=== PATIENT | female | born 1985 | race Hispanic/Latino ===

== ENCOUNTER 2019-09-16 17:26 | Emergency (ER) | payer SELFPAY ==
[~2019-09-16] VITALS: Ht 154.9 cm; Wt 68.0 kg
--- OUTSIDE RECORDS SUMMARY | 2019-09-16 17:29 | XMS REPORT ---
[facility] Address Unknown Phone Unavailable Care Team Providers Care Pv Design And Installation Technician Name Role Phone Unavailable Unavailable Payers Payer Name Policy Type Policy Number Effective Date Expiration Date Problems This patient has no known problems. Allergies, Adverse Reactions, Alerts Allergy Name Allergy Type Status Severity Reaction(s) Onset Date Inactive Date Treating Clinician Comments No Known Allergies DA Active U 2019-05-13 00:00:00 No Known Allergies DA Active U 2019-05-12 00:00:00 No Known Allergies DA Active U 2019-04-16 00:00:00 No Known Allergies DA Active U 2019-02-24 00:00:00 No Known Allergies DA Active U 2013-10-26 00:00:00 Medications This patient has no known medications. Encounters Start Date/Time End Date/Time Encounter Type Admission Type Attending Clinicians Care Facility Care Department Encounter ID 2019-07-10 07:22:00 2019-07-10 07:22:00 Emergency E [facility] [id number] 2019-07-08 15:00:00 2019-07-08 15:00:00 Emergency E [facility] 7502 2019-02-04 16:51:00 2019-02-04 16:51:00 Emergency E [facility] [id number] Results Test Description Test Time Test Comments Text Results Atomic Results Result Comments CBC W/MANUAL DIFF 2019-05-15 09:45:00 WHITE BLOOD CELL (test code=WBC) 7.1 K/mm3 4.5-12.5 RED BLOOD CELL (test code=RBC) 3.81 mill/mm3 3.7-5.2 HEMOGLOBIN (test code=HGB) 7.0 gram/dL 11.5-15.5 HEMATOCRIT (test code=HCT) 25.1 % 36.0-46.0 MEAN CELL VOLUME (test code=MCV) 65.9 fL 80-98 MEAN CELL HGB (test code=MCH) 18.4 picogram 27.0-33.0 MEAN CELL HGB CONCETRATION (test code=MCHC) 27.9 gram/dL 33.0-36.0 RED CELL DISTRIBUTION WIDTH (test code=RDW) 18.6 % 11.6-16.2 RED CELL DISTRIBUTION WIDTH SD (test code=RDW-SD) 43.7 fL 37.0-51.0 PLATELET COUNT (test code=PLT) 383 K/mm3 150-450 MEAN PLATELET VOLUME (test code=MPV) 10.5 fL 6.7-11.0 IMMATURE GRANULOCYTE % (test code=IG%) 0.6 % 0.0-5.0 NUCLEATED RBC % (test code=NRBC%) 0.0 % 0-0 NEUTROPHIL # (test code=NT#) 3.60 K/mm3 1.8-7.7 IMMATURE GRANULOCYTE # (test code=IG#) 0.04 x10 3/uL 0-0.03 LYMPHOCYTE # (test code=LY#) 2.44 K/mm3 1.0-5.0 MONOCYTE # (test code=MO#) 0.58 K/mm3 0-0.8 EOSINOPHIL # (test code=EO#) 0.32 K/mm3 0.0-0.5 BASOPHIL # (test code=BA#) 0.07 K/mm3 0.0-0.2 NUCLEATED RBC # (test code=NRBC#) 0.00 K/mm3 0.0-0.1 MANUAL DIFF REQUIRED (test code=MDIFF) YES STAIN ACCEPTABILITY (test code=STN ACCEPTABLE) STAIN ACCEPTABLE TOTAL CELLS COUNTED (test code=TCC) 113 #CELLS SEGMENTED NEUTROPHILS (test code=SEG) 58.8 % 39-69 BAND NEUTROPHIL (test code=BAND) 0 % 0-10 LYMPHOCYTE (test code=LYMPH) 25.8 % 25-55 REACTIVE LYMPH (test code=RELYMPH) 4.4 % MONOCYTE (test code=MON) 5.7 % 0-10 EOSINOPHIL (test code=EOS) 3.5 % 0.0-5.0 BASOPHIL (test code=BASO) 1.8 % 0-1.0 METAMYELOCYTE (test code=META) 0 % 0-0 MYELOCYTE (test code=MYELO) 0 % 0.0-0.0 PROMYELOCYTE (test code=PROM) 0 % 0-0 POLYCHROMASIA (test code=POLC) 1+ HYPOCHROMIA (test code=HYPO) 1+ POIKILOCYTOSIS (test code=POIK) 1+ ANISOCYTOSIS (test code=ANISO) 1+ MICROCYTOSIS (test code=MICR) 1+ ELLIPTOCYTES (test code=ELL) 1+ PLATELET ESTIMATE (test code=PLTEST) ADEQUATE PLATELET MORPHOLOGY (test code=PLTMORPH) NORMAL IMMATURE FORMS (test code=IMMAT) 0 % 0-0 CBC W/MANUAL [id number] 09:15:00* Test Item Value Reference Range Comments WHITE BLOOD CELL (test code=WBC) 7.1 K/mm3 4.5-12.5 RED BLOOD CELL (test code=RBC) 3.81 mill/mm3 3.7-5.2 HEMOGLOBIN (test code=HGB) 7.0 gram/dL 11.5-15.5 HEMATOCRIT (test code=HCT) 25.1 % 36.0-46.0 MEAN CELL VOLUME (test code=MCV) 65.9 fL 80-98 MEAN CELL HGB (test code=MCH) 18.4 picogram 27.0-33.0 MEAN CELL HGB CONCETRATION (test code=MCHC) 27.9 gram/dL 33.0-36.0 RED CELL DISTRIBUTION WIDTH (test code=RDW) 18.6 % 11.6-16.2 RED CELL DISTRIBUTION WIDTH SD (test code=RDW-SD) 43.7 fL 37.0-51.0 PLATELET COUNT (test code=PLT) 383 K/mm3 150-450 MEAN PLATELET VOLUME (test code=MPV) 10.5 fL 6.7-11.0 IMMATURE GRANULOCYTE % (test code=IG%) 0.6 % 0.0-5.0 NUCLEATED RBC % (test code=NRBC%) 0.0 % 0-0 NEUTROPHIL # (test code=NT#) 3.60 K/mm3 1.8-7.7 IMMATURE GRANULOCYTE # (test code=IG#) 0.04 x10 3/uL 0-0.03 LYMPHOCYTE # (test code=LY#) 2.44 K/mm3 1.0-5.0 MONOCYTE # (test code=MO#) 0.58 K/mm3 0-0.8 EOSINOPHIL # (test code=EO#) 0.32 K/mm3 0.0-0.5 BASOPHIL # (test code=BA#) 0.07 K/mm3 0.0-0.2 NUCLEATED RBC # (test code=NRBC#) 0.00 K/mm3 0.0-0.1 MANUAL DIFF REQUIRED (test code=MDIFF) YES STAIN ACCEPTABILITY (test code=STN ACCEPTABLE) TOTAL CELLS COUNTED (test code=TCC) #CELLS SEGMENTED NEUTROPHILS (test code=SEG) % 39-69 LYMPHOCYTE (test code=LYMPH) % 25-55 MONOCYTE (test code=MON) % 0-10 EOSINOPHIL (test code=EOS) % 0.0-5.0 CABOT RINGS (test code=CAB) MORPHOLOGY COMMENT (test code=MOC) PLATELET ESTIMATE (test code=PLTEST) PLATELET MORPHOLOGY (test code=PLTMORPH) CBC W/MANUAL [id number] 09:15:00* Test Item Value Reference Range Comments WHITE BLOOD CELL (test code=WBC) 7.1 K/mm3 4.5-12.5 RED BLOOD CELL (test code=RBC) 3.81 mill/mm3 3.7-5.2 HEMOGLOBIN (test code=HGB) 7.0 gram/dL 11.5-15.5 HEMATOCRIT (test code=HCT) 25.1 % 36.0-46.0 MEAN CELL VOLUME (test code=MCV) 65.9 fL 80-98 MEAN CELL HGB (test code=MCH) 18.4 picogram 27.0-33.0 MEAN CELL HGB CONCETRATION (test code=MCHC) 27.9 gram/dL 33.0-36.0 RED CELL DISTRIBUTION WIDTH (test code=RDW) 18.6 % 11.6-16.2 RED CELL DISTRIBUTION WIDTH SD (test code=RDW-SD) 43.7 fL 37.0-51.0 PLATELET COUNT (test code=PLT) 383 K/mm3 150-450 MEAN PLATELET VOLUME (test code=MPV) 10.5 fL 6.7-11.0 IMMATURE GRANULOCYTE % (test code=IG%) 0.6 % 0.0-5.0 NUCLEATED RBC % (test code=NRBC%) 0.0 % 0-0 NEUTROPHIL # (test code=NT#) 3.60 K/mm3 1.8-7.7 IMMATURE GRANULOCYTE # (test code=IG#) 0.04 x10 3/uL 0-0.03 LYMPHOCYTE # (test code=LY#) 2.44 K/mm3 1.0-5.0 MONOCYTE # (test code=MO#) 0.58 K/mm3 0-0.8 EOSINOPHIL # (test code=EO#) 0.32 K/mm3 0.0-0.5 BASOPHIL # (test code=BA#) 0.07 K/mm3 0.0-0.2 NUCLEATED RBC # (test code=NRBC#) 0.00 K/mm3 0.0-0.1 MANUAL DIFF REQUIRED (test code=MDIFF) YES STAIN ACCEPTABILITY (test code=STN ACCEPTABLE) TOTAL CELLS COUNTED (test code=TCC) #CELLS SEGMENTED NEUTROPHILS (test code=SEG) % 39-69 LYMPHOCYTE (test code=LYMPH) % 25-55 MONOCYTE (test code=MON) % 0-10 EOSINOPHIL (test code=EOS) % 0.0-5.0 MORPHOLOGY COMMENT (test code=MOC) PLATELET ESTIMATE (test code=PLTEST) PLATELET MORPHOLOGY (test code=PLTMORPH) CBC W/MANUAL [id number] 09:15:00* Test Item Value Reference Range Comments WHITE BLOOD CELL (test code=WBC) 7.1 K/mm3 4.5-12.5 RED BLOOD CELL (test code=RBC) 3.81 mill/mm3 3.7-5.2 HEMOGLOBIN (test code=HGB) 7.0 gram/dL 11.5-15.5 HEMATOCRIT (test code=HCT) 25.1 % 36.0-46.0 MEAN CELL VOLUME (test code=MCV) 65.9 fL 80-98 MEAN CELL HGB (test code=MCH) 18.4 picogram 27.0-33.0 MEAN CELL HGB CONCETRATION (test code=MCHC) 27.9 gram/dL 33.0-36.0 RED CELL DISTRIBUTION WIDTH (test code=RDW) 18.6 % 11.6-16.2 RED CELL DISTRIBUTION WIDTH SD (test code=RDW-SD) 43.7 fL 37.0-51.0 PLATELET COUNT (test code=PLT) 383 K/mm3 150-450 MEAN PLATELET VOLUME (test code=MPV) 10.5 fL 6.7-11.0 IMMATURE GRANULOCYTE % (test code=IG%) 0.6 % 0.0-5.0 NUCLEATED RBC % (test code=NRBC%) 0.0 % 0-0 NEUTROPHIL # (test code=NT#) 3.60 K/mm3 1.8-7.7 IMMATURE GRANULOCYTE # (test code=IG#) 0.04 x10 3/uL 0-0.03 LYMPHOCYTE # (test code=LY#) 2.44 K/mm3 1.0-5.0 MONOCYTE # (test code=MO#) 0.58 K/mm3 0-0.8 EOSINOPHIL # (test code=EO#) 0.32 K/mm3 0.0-0.5 BASOPHIL # (test code=BA#) 0.07 K/mm3 0.0-0.2 NUCLEATED RBC # (test code=NRBC#) 0.00 K/mm3 0.0-0.1 MANUAL DIFF REQUIRED (test code=MDIFF) YES STAIN ACCEPTABILITY (test code=STN ACCEPTABLE) TOTAL CELLS COUNTED (test code=TCC) #CELLS SEGMENTED NEUTROPHILS (test code=SEG) % 39-69 LYMPHOCYTE (test code=LYMPH) % 25-55 MONOCYTE (test code=MON) % 0-10 MORPHOLOGY COMMENT (test code=MOC) PLATELET ESTIMATE (test code=PLTEST) PLATELET MORPHOLOGY (test code=PLTMORPH) CBC W/MANUAL [id number] 09:14:00* Test Item Value Reference Range Comments WHITE BLOOD CELL (test code=WBC) 7.1 K/mm3 4.5-12.5 RED BLOOD CELL (test code=RBC) 3.81 mill/mm3 3.7-5.2 HEMOGLOBIN (test code=HGB) 7.0 gram/dL 11.5-15.5 HEMATOCRIT (test code=HCT) 25.1 % 36.0-46.0 MEAN CELL VOLUME (test code=MCV) 65.9 fL 80-98 MEAN CELL HGB (test code=MCH) 18.4 picogram 27.0-33.0 MEAN CELL HGB CONCETRATION (test code=MCHC) 27.9 gram/dL 33.0-36.0 RED CELL DISTRIBUTION WIDTH (test code=RDW) 18.6 % 11.6-16.2 RED CELL DISTRIBUTION WIDTH SD (test code=RDW-SD) 43.7 fL 37.0-51.0 PLATELET COUNT (test code=PLT) 383 K/mm3 150-450 MEAN PLATELET VOLUME (test code=MPV) 10.5 fL 6.7-11.0 IMMATURE GRANULOCYTE % (test code=IG%) 0.6 % 0.0-5.0 NUCLEATED RBC % (test code=NRBC%) 0.0 % 0-0 NEUTROPHIL # (test code=NT#) 3.60 K/mm3 1.8-7.7 IMMATURE GRANULOCYTE # (test code=IG#) 0.04 x10 3/uL 0-0.03 LYMPHOCYTE # (test code=LY#) 2.44 K/mm3 1.0-5.0 MONOCYTE # (test code=MO#) 0.58 K/mm3 0-0.8 EOSINOPHIL # (test code=EO#) 0.32 K/mm3 0.0-0.5 BASOPHIL # (test code=BA#) 0.07 K/mm3 0.0-0.2 NUCLEATED RBC # (test code=NRBC#) 0.00 K/mm3 0.0-0.1 MANUAL DIFF REQUIRED (test code=MDIFF) YES STAIN ACCEPTABILITY (test code=STN ACCEPTABLE) TOTAL CELLS COUNTED (test code=TCC) #CELLS SEGMENTED NEUTROPHILS (test code=SEG) % 39-69 LYMPHOCYTE (test code=LYMPH) % 25-55 MONOCYTE (test code=MON) % 0-10 EOSINOPHIL (test code=EOS) % 0.0-5.0 CABOT RINGS (test code=CAB) MORPHOLOGY COMMENT (test code=MOC) PLATELET ESTIMATE (test code=PLTEST) PLATELET MORPHOLOGY (test code=PLTMORPH) CBC W/MANUAL [id number] 09:14:00* Test Item Value Reference Range Comments WHITE BLOOD CELL (test code=WBC) 7.1 K/mm3 4.5-12.5 RED BLOOD CELL (test code=RBC) 3.81 mill/mm3 3.7-5.2 HEMOGLOBIN (test code=HGB) 7.0 gram/dL 11.5-15.5 HEMATOCRIT (test code=HCT) 25.1 % 36.0-46.0 MEAN CELL VOLUME (test code=MCV) 65.9 fL 80-98 MEAN CELL HGB (test code=MCH) 18.4 picogram 27.0-33.0 MEAN CELL HGB CONCETRATION (test code=MCHC) 27.9 gram/dL 33.0-36.0 RED CELL DISTRIBUTION WIDTH (test code=RDW) 18.6 % 11.6-16.2 RED CELL DISTRIBUTION WIDTH SD (test code=RDW-SD) 43.7 fL 37.0-51.0 PLATELET COUNT (test code=PLT) 383 K/mm3 150-450 MEAN PLATELET VOLUME (test code=MPV) 10.5 fL 6.7-11.0 IMMATURE GRANULOCYTE % (test code=IG%) 0.6 % 0.0-5.0 NUCLEATED RBC % (test code=NRBC%) 0.0 % 0-0 NEUTROPHIL # (test code=NT#) 3.60 K/mm3 1.8-7.7 IMMATURE GRANULOCYTE # (test code=IG#) 0.04 x10 3/uL 0-0.03 LYMPHOCYTE # (test code=LY#) 2.44 K/mm3 1.0-5.0 MONOCYTE # (test code=MO#) 0.58 K/mm3 0-0.8 EOSINOPHIL # (test code=EO#) 0.32 K/mm3 0.0-0.5 BASOPHIL # (test code=BA#) 0.07 K/mm3 0.0-0.2 NUCLEATED RBC # (test code=NRBC#) 0.00 K/mm3 0.0-0.1 MANUAL DIFF REQUIRED (test code=MDIFF) YES STAIN ACCEPTABILITY (test code=STN ACCEPTABLE) TOTAL CELLS COUNTED (test code=TCC) #CELLS SEGMENTED NEUTROPHILS (test code=SEG) % 39-69 LYMPHOCYTE (test code=LYMPH) % 25-55 MONOCYTE (test code=MON) % 0-10 EOSINOPHIL (test code=EOS) % 0.0-5.0 CABOT RINGS (test code=CAB) MORPHOLOGY COMMENT (test code=MOC) PLATELET ESTIMATE (test code=PLTEST) PLATELET MORPHOLOGY (test code=PLTMORPH) BASIC METABOLIC [id number] 08:16:00* Test Item Value Reference Range Comments SODIUM (test code=NA) 143 mmol/L 136-145 POTASSIUM (test code=K) 3.6 mmol/L 3.5-5.1 CHLORIDE (test code=CL) 109.0 mmol/L 98-107 CARBON DIOXIDE (test code=CO2) 26.0 mmol/L 21-32 ANION GAP (test code=GAP) 11.6 10-20 GLUCOSE (test code=GLU) 100 mg/dL 74-106 BLOOD UREA NITROGEN (test code=BUN) 5 mg/dL 7-18 GLOMERULAR FILTRATION RATE (test code=GFR) > 60 mL/min >=60 Estimated GFR by using Modified MDRD formula.Chronic kidney disease is defined as either kidney damageor GFR <60 mL/min/1.73 m2 for >3 months. CREATININE (test code=CREAT) 0.50 mg/dL 0.55-1.02 Note change in reference range due to change in reagent. BUN/CREATININE RATIO (test code=BUN/CREA) 9.5 10-20 CALCIUM (test code=CA) 8.4 mg/dL 8.5-10.1 CBC W/AUTO [id number] 07:04:00* Test Item Value Reference Range Comments WHITE BLOOD CELL (test code=WBC) 10.5 K/mm3 4.5-12.5 RED BLOOD CELL (test code=RBC) 3.92 mill/mm3 3.7-5.2 HEMOGLOBIN (test code=HGB) 7.3 gram/dL 11.5-15.5 HEMATOCRIT (test code=HCT) 25.2 % 36.0-46.0 MEAN CELL VOLUME (test code=MCV) 64.3 fL 80-98 MEAN CELL HGB (test code=MCH) 18.6 picogram 27.0-33.0 MEAN CELL HGB CONCETRATION (test code=MCHC) 29.0 gram/dL 33.0-36.0 RED CELL DISTRIBUTION WIDTH (test code=RDW) 18.7 % 11.6-16.2 RED CELL DISTRIBUTION WIDTH SD (test code=RDW-SD) 42.3 fL 37.0-51.0 PLATELET COUNT (test code=PLT) 364 K/mm3 150-450 MEAN PLATELET VOLUME (test code=MPV) 10.5 fL 6.7-11.0 NEUTROPHIL % (test code=NT%) 68.1 % 39.0-69.0 IMMATURE GRANULOCYTE % (test code=IG%) 0.6 % 0.0-5.0 LYMPHOCYTE % (test code=LY%) 19.3 % 25.0-55.0 MONOCYTE % (test code=MO%) 9.4 % 0.0-10.0 EOSINOPHIL % (test code=EO%) 1.6 % 0.0-5.0 BASOPHIL % (test code=BA%) 1.0 % 0.0-1.0 NUCLEATED RBC % (test code=NRBC%) 0.0 % 0-0 NEUTROPHIL # (test code=NT#) 7.15 K/mm3 1.8-7.7 IMMATURE GRANULOCYTE # (test code=IG#) 0.06 x10 3/uL 0-0.03 LYMPHOCYTE # (test code=LY#) 2.03 K/mm3 1.0-5.0 MONOCYTE # (test code=MO#) 0.99 K/mm3 0-0.8 EOSINOPHIL # (test code=EO#) 0.17 K/mm3 0.0-0.5 BASOPHIL # (test code=BA#) 0.10 K/mm3 0.0-0.2 NUCLEATED RBC # (test code=NRBC#) 0.00 K/mm3 0.0-0.1 MANUAL DIFF REQUIRED (test code=MDIFF) NO, ONLY SCAN NEEDED DIFFERENTIAL [id number] 07:04:00* Test Item Value Reference Range Comments STAIN ACCEPTABILITY (test code=STN ACCEPTABLE) STAIN ACCEPTABLE POLYCHROMASIA (test code=POLC) 1+ HYPOCHROMIA (test code=HYPO) 2+ POIKILOCYTOSIS (test code=POIK) 1+ ANISOCYTOSIS (test code=ANISO) 2+ MICROCYTOSIS (test code=MICR) 2+ PLATELET ESTIMATE (test code=PLTEST) ADEQUATE PLATELET MORPHOLOGY (test code=PLTMORPH) NORMAL BASIC METABOLIC [id number] 06:44:00* Test Item Value Reference Range Comments SODIUM (test code=NA) 141 mmol/L 136-145 POTASSIUM (test code=K) 3.2 mmol/L 3.5-5.1 CHLORIDE (test code=CL) 108.0 mmol/L 98-107 CARBON DIOXIDE (test code=CO2) 24.0 mmol/L 21-32 ANION GAP (test code=GAP) 12.2 10-20 GLUCOSE (test code=GLU) 118 mg/dL 74-106 BLOOD UREA NITROGEN (test code=BUN) 6 mg/dL 7-18 GLOMERULAR FILTRATION RATE (test code=GFR) > 60 mL/min >=60 Estimated GFR by using Modified MDRD formula.Chronic kidney disease is defined as either kidney damageor GFR <60 mL/min/1.73 m2 for >3 months. CREATININE (test code=CREAT) 0.60 mg/dL 0.55-1.02 Note change in reference range due to change in reagent. BUN/CREATININE RATIO (test code=BUN/CREA) 9.8 10-20 CALCIUM (test code=CA) 8.3 mg/dL 8.5-10.1 BASIC METABOLIC [id number] 06:38:00* Test Item Value Reference Range Comments SODIUM (test code=NA) 141 mmol/L 136-145 POTASSIUM (test code=K) 3.2 mmol/L 3.5-5.1 CHLORIDE (test code=CL) 108.0 mmol/L 98-107 CARBON DIOXIDE (test code=CO2) mmol/L 21-32 ANION GAP (test code=GAP) 10-20 GLUCOSE (test code=GLU) mg/dL 74-106 BLOOD UREA NITROGEN (test code=BUN) mg/dL 7-18 GLOMERULAR FILTRATION RATE (test code=GFR) mL/min >=60 CREATININE (test code=CREAT) mg/dL 0.55-1.02 BUN/CREATININE RATIO (test code=BUN/CREA) 10-20 CALCIUM (test code=CA) mg/dL 8.5-10.1 CBC W/AUTO [id number] 06:22:00* Test Item Value Reference Range Comments WHITE BLOOD CELL (test code=WBC) 10.5 K/mm3 4.5-12.5 RED BLOOD CELL (test code=RBC) 3.92 mill/mm3 3.7-5.2 HEMOGLOBIN (test code=HGB) 7.3 gram/dL 11.5-15.5 HEMATOCRIT (test code=HCT) 25.2 % 36.0-46.0 MEAN CELL VOLUME (test code=MCV) 64.3 fL 80-98 MEAN CELL HGB (test code=MCH) 18.6 picogram 27.0-33.0 MEAN CELL HGB CONCETRATION (test code=MCHC) 29.0 gram/dL 33.0-36.0 RED CELL DISTRIBUTION WIDTH (test code=RDW) 18.7 % 11.6-16.2 RED CELL DISTRIBUTION WIDTH SD (test code=RDW-SD) 42.3 fL 37.0-51.0 PLATELET COUNT (test code=PLT) 364 K/mm3 150-450 MEAN PLATELET VOLUME (test code=MPV) 10.5 fL 6.7-11.0 NEUTROPHIL % (test code=NT%) 68.1 % 39.0-69.0 IMMATURE GRANULOCYTE % (test code=IG%) 0.6 % 0.0-5.0 LYMPHOCYTE % (test code=LY%) 19.3 % 25.0-55.0 MONOCYTE % (test code=MO%) 9.4 % 0.0-10.0 EOSINOPHIL % (test code=EO%) 1.6 % 0.0-5.0 BASOPHIL % (test code=BA%) 1.0 % 0.0-1.0 NUCLEATED RBC % (test code=NRBC%) 0.0 % 0-0 NEUTROPHIL # (test code=NT#) 7.15 K/mm3 1.8-7.7 IMMATURE GRANULOCYTE # (test code=IG#) 0.06 x10 3/uL 0-0.03 LYMPHOCYTE # (test code=LY#) 2.03 K/mm3 1.0-5.0 MONOCYTE # (test code=MO#) 0.99 K/mm3 0-0.8 EOSINOPHIL # (test code=EO#) 0.17 K/mm3 0.0-0.5 BASOPHIL # (test code=BA#) 0.10 K/mm3 0.0-0.2 NUCLEATED RBC # (test code=NRBC#) 0.00 K/mm3 0.0-0.1 MANUAL DIFF REQUIRED (test code=MDIFF) NO, ONLY SCAN NEEDED DIFFERENTIAL [id number] 06:22:00* Test Item Value Reference Range Comments STAIN ACCEPTABILITY (test code=STN ACCEPTABLE) CABOT RINGS (test code=CAB) MORPHOLOGY COMMENT (test code=MOC) PLATELET ESTIMATE (test code=PLTEST) PLATELET MORPHOLOGY (test code=PLTMORPH) CBC W/AUTO [id number] 06:22:00* Test Item Value Reference Range Comments WHITE BLOOD CELL (test code=WBC) 10.5 K/mm3 4.5-12.5 RED BLOOD CELL (test code=RBC) 3.92 mill/mm3 3.7-5.2 HEMOGLOBIN (test code=HGB) 7.3 gram/dL 11.5-15.5 HEMATOCRIT (test code=HCT) 25.2 % 36.0-46.0 MEAN CELL VOLUME (test code=MCV) 64.3 fL 80-98 MEAN CELL HGB (test code=MCH) 18.6 picogram 27.0-33.0 MEAN CELL HGB CONCETRATION (test code=MCHC) 29.0 gram/dL 33.0-36.0 RED CELL DISTRIBUTION WIDTH (test code=RDW) 18.7 % 11.6-16.2 RED CELL DISTRIBUTION WIDTH SD (test code=RDW-SD) 42.3 fL 37.0-51.0 PLATELET COUNT (test code=PLT) 364 K/mm3 150-450 MEAN PLATELET VOLUME (test code=MPV) 10.5 fL 6.7-11.0 NEUTROPHIL % (test code=NT%) 68.1 % 39.0-69.0 IMMATURE GRANULOCYTE % (test code=IG%) 0.6 % 0.0-5.0 LYMPHOCYTE % (test code=LY%) 19.3 % 25.0-55.0 MONOCYTE % (test code=MO%) 9.4 % 0.0-10.0 EOSINOPHIL % (test code=EO%) 1.6 % 0.0-5.0 BASOPHIL % (test code=BA%) 1.0 % 0.0-1.0 NUCLEATED RBC % (test code=NRBC%) 0.0 % 0-0 NEUTROPHIL # (test code=NT#) 7.15 K/mm3 1.8-7.7 IMMATURE GRANULOCYTE # (test code=IG#) 0.06 x10 3/uL 0-0.03 LYMPHOCYTE # (test code=LY#) 2.03 K/mm3 1.0-5.0 MONOCYTE # (test code=MO#) 0.99 K/mm3 0-0.8 EOSINOPHIL # (test code=EO#) 0.17 K/mm3 0.0-0.5 BASOPHIL # (test code=BA#) 0.10 K/mm3 0.0-0.2 NUCLEATED RBC # (test code=NRBC#) 0.00 K/mm3 0.0-0.1 MANUAL DIFF REQUIRED (test code=MDIFF) NO, ONLY SCAN NEEDED DIFFERENTIAL [id number] 06:22:00* Test Item Value Reference Range Comments STAIN ACCEPTABILITY (test code=STN ACCEPTABLE) MORPHOLOGY COMMENT (test code=MOC) PLATELET ESTIMATE (test code=PLTEST) PLATELET MORPHOLOGY (test code=PLTMORPH) CBC W/AUTO [id number] 06:21:00* Test Item Value Reference Range Comments WHITE BLOOD CELL (test code=WBC) 10.5 K/mm3 4.5-12.5 RED BLOOD CELL (test code=RBC) 3.92 mill/mm3 3.7-5.2 HEMOGLOBIN (test code=HGB) 7.3 gram/dL 11.5-15.5 HEMATOCRIT (test code=HCT) 25.2 % 36.0-46.0 MEAN CELL VOLUME (test code=MCV) 64.3 fL 80-98 MEAN CELL HGB (test code=MCH) 18.6 picogram 27.0-33.0 MEAN CELL HGB CONCETRATION (test code=MCHC) 29.0 gram/dL 33.0-36.0 RED CELL DISTRIBUTION WIDTH (test code=RDW) 18.7 % 11.6-16.2 RED CELL DISTRIBUTION WIDTH SD (test code=RDW-SD) 42.3 fL 37.0-51.0 PLATELET COUNT (test code=PLT) 364 K/mm3 150-450 MEAN PLATELET VOLUME (test code=MPV) 10.5 fL 6.7-11.0 NEUTROPHIL % (test code=NT%) 68.1 % 39.0-69.0 IMMATURE GRANULOCYTE % (test code=IG%) 0.6 % 0.0-5.0 LYMPHOCYTE % (test code=LY%) 19.3 % 25.0-55.0 MONOCYTE % (test code=MO%) 9.4 % 0.0-10.0 EOSINOPHIL % (test code=EO%) 1.6 % 0.0-5.0 BASOPHIL % (test code=BA%) 1.0 % 0.0-1.0 NUCLEATED RBC % (test code=NRBC%) 0.0 % 0-0 NEUTROPHIL # (test code=NT#) 7.15 K/mm3 1.8-7.7 IMMATURE GRANULOCYTE # (test code=IG#) 0.06 x10 3/uL 0-0.03 LYMPHOCYTE # (test code=LY#) 2.03 K/mm3 1.0-5.0 MONOCYTE # (test code=MO#) 0.99 K/mm3 0-0.8 EOSINOPHIL # (test code=EO#) 0.17 K/mm3 0.0-0.5 BASOPHIL # (test code=BA#) 0.10 K/mm3 0.0-0.2 NUCLEATED RBC # (test code=NRBC#) 0.00 K/mm3 0.0-0.1 MANUAL DIFF REQUIRED (test code=MDIFF) NO, ONLY SCAN NEEDED DIFFERENTIAL [id number] 06:21:00* Test Item Value Reference Range Comments STAIN ACCEPTABILITY (test code=STN ACCEPTABLE) CABOT RINGS (test code=CAB) MORPHOLOGY COMMENT (test code=MOC) PLATELET ESTIMATE (test code=PLTEST) PLATELET MORPHOLOGY (test code=PLTMORPH) CBC W/AUTO [id number] 06:21:00* Test Item Value Reference Range Comments WHITE BLOOD CELL (test code=WBC) 10.5 K/mm3 4.5-12.5 RED BLOOD CELL (test code=RBC) 3.92 mill/mm3 3.7-5.2 HEMOGLOBIN (test code=HGB) 7.3 gram/dL 11.5-15.5 HEMATOCRIT (test code=HCT) 25.2 % 36.0-46.0 MEAN CELL VOLUME (test code=MCV) 64.3 fL 80-98 MEAN CELL HGB (test code=MCH) 18.6 picogram 27.0-33.0 MEAN CELL HGB CONCETRATION (test code=MCHC) 29.0 gram/dL 33.0-36.0 RED CELL DISTRIBUTION WIDTH (test code=RDW) 18.7 % 11.6-16.2 RED CELL DISTRIBUTION WIDTH SD (test code=RDW-SD) 42.3 fL 37.0-51.0 PLATELET COUNT (test code=PLT) 364 K/mm3 150-450 MEAN PLATELET VOLUME (test code=MPV) 10.5 fL 6.7-11.0 NEUTROPHIL % (test code=NT%) 68.1 % 39.0-69.0 IMMATURE GRANULOCYTE % (test code=IG%) 0.6 % 0.0-5.0 LYMPHOCYTE % (test code=LY%) 19.3 % 25.0-55.0 MONOCYTE % (test code=MO%) 9.4 % 0.0-10.0 EOSINOPHIL % (test code=EO%) 1.6 % 0.0-5.0 BASOPHIL % (test code=BA%) 1.0 % 0.0-1.0 NUCLEATED RBC % (test code=NRBC%) 0.0 % 0-0 NEUTROPHIL # (test code=NT#) 7.15 K/mm3 1.8-7.7 IMMATURE GRANULOCYTE # (test code=IG#) 0.06 x10 3/uL 0-0.03 LYMPHOCYTE # (test code=LY#) 2.03 K/mm3 1.0-5.0 MONOCYTE # (test code=MO#) 0.99 K/mm3 0-0.8 EOSINOPHIL # (test code=EO#) 0.17 K/mm3 0.0-0.5 BASOPHIL # (test code=BA#) 0.10 K/mm3 0.0-0.2 NUCLEATED RBC # (test code=NRBC#) 0.00 K/mm3 0.0-0.1 MANUAL DIFF REQUIRED (test code=MDIFF) NO, ONLY SCAN NEEDED DIFFERENTIAL [id number] 06:21:00* Test Item Value Reference Range Comments STAIN ACCEPTABILITY (test code=STN ACCEPTABLE) CABOT RINGS (test code=CAB) MORPHOLOGY COMMENT (test code=MOC) PLATELET ESTIMATE (test code=PLTEST) PLATELET MORPHOLOGY (test code=PLTMORPH) CBC W/AUTO [id number] 08:00:00* Test Item Value Reference Range Comments WHITE BLOOD CELL (test code=WBC) 9.5 K/mm3 4.5-12.5 RED BLOOD CELL (test code=RBC) 4.11 mill/mm3 3.7-5.2 HEMOGLOBIN (test code=HGB) 7.6 gram/dL 11.5-15.5 HEMATOCRIT (test code=HCT) 26.4 % 36.0-46.0 MEAN CELL VOLUME (test code=MCV) 64.2 fL 80-98 MEAN CELL HGB (test code=MCH) 18.5 picogram 27.0-33.0 MEAN CELL HGB CONCETRATION (test code=MCHC) 28.8 gram/dL 33.0-36.0 RED CELL DISTRIBUTION WIDTH (test code=RDW) 18.9 % 11.6-16.2 RED CELL DISTRIBUTION WIDTH SD (test code=RDW-SD) 43.0 fL 37.0-51.0 PLATELET COUNT (test code=PLT) 360 K/mm3 150-450 MEAN PLATELET VOLUME (test code=MPV) 10.3 fL 6.7-11.0 NEUTROPHIL % (test code=NT%) 61.1 % 39.0-69.0 IMMATURE GRANULOCYTE % (test code=IG%) 0.5 % 0.0-5.0 LYMPHOCYTE % (test code=LY%) 24.2 % 25.0-55.0 MONOCYTE % (test code=MO%) 11.8 % 0.0-10.0 EOSINOPHIL % (test code=EO%) 1.3 % 0.0-5.0 BASOPHIL % (test code=BA%) 1.1 % 0.0-1.0 NUCLEATED RBC % (test code=NRBC%) 0.0 % 0-0 NEUTROPHIL # (test code=NT#) 5.78 K/mm3 1.8-7.7 IMMATURE GRANULOCYTE # (test code=IG#) 0.05 x10 3/uL 0-0.03 LYMPHOCYTE # (test code=LY#) 2.29 K/mm3 1.0-5.0 MONOCYTE # (test code=MO#) 1.12 K/mm3 0-0.8 EOSINOPHIL # (test code=EO#) 0.12 K/mm3 0.0-0.5 BASOPHIL # (test code=BA#) 0.10 K/mm3 0.0-0.2 NUCLEATED RBC # (test code=NRBC#) 0.00 K/mm3 0.0-0.1 MANUAL DIFF REQUIRED (test code=MDIFF) NO, ONLY SCAN NEEDED DIFFERENTIAL [id number] 08:00:00* Test Item Value Reference Range Comments STAIN ACCEPTABILITY (test code=STN ACCEPTABLE) STAIN ACCEPTABLE POLYCHROMASIA (test code=POLC) 1+ HYPOCHROMIA (test code=HYPO) 2+ POIKILOCYTOSIS (test code=POIK) 1+ ANISOCYTOSIS (test code=ANISO) 1+ MICROCYTOSIS (test code=MICR) 2+ PLATELET ESTIMATE (test code=PLTEST) ADEQUATE PLATELET MORPHOLOGY (test code=PLTMORPH) NORMAL BASIC METABOLIC [id number] 07:30:00* Test Item Value Reference Range Comments SODIUM (test code=NA) 144 mmol/L 136-145 RESULT VERIFIED BY REPEAT ANALYSIS POTASSIUM (test code=K) 3.9 mmol/L 3.5-5.1 CHLORIDE (test code=CL) 113.0 mmol/L 98-107 CARBON DIOXIDE (test code=CO2) 23.0 mmol/L 21-32 ANION GAP (test code=GAP) 11.9 10-20 GLUCOSE (test code=GLU) 91 mg/dL 74-106 BLOOD UREA NITROGEN (test code=BUN) 11 mg/dL 7-18 GLOMERULAR FILTRATION RATE (test code=GFR) > 60 mL/min >=60 Estimated GFR by using Modified MDRD formula.Chronic kidney disease is defined as either kidney damageor GFR <60 mL/min/1.73 m2 for >3 months. CREATININE (test code=CREAT) 0.50 mg/dL 0.55-1.02 Note change in reference range due to change in reagent. BUN/CREATININE RATIO (test code=BUN/CREA) 20.5 10-20 CALCIUM (test code=CA) 8.1 mg/dL 8.5-10.1 [id number] 07:24:00* Test Item Value Reference Range Comments TROPONIN-I (test code=TROPI) <0.015 ng/mL 0-0.045 CBC W/AUTO [id number] 06:56:00* Test Item Value Reference Range Comments WHITE BLOOD CELL (test code=WBC) 9.5 K/mm3 4.5-12.5 RED BLOOD CELL (test code=RBC) 4.11 mill/mm3 3.7-5.2 HEMOGLOBIN (test code=HGB) 7.6 gram/dL 11.5-15.5 HEMATOCRIT (test code=HCT) 26.4 % 36.0-46.0 MEAN CELL VOLUME (test code=MCV) 64.2 fL 80-98 MEAN CELL HGB (test code=MCH) 18.5 picogram 27.0-33.0 MEAN CELL HGB CONCETRATION (test code=MCHC) 28.8 gram/dL 33.0-36.0 RED CELL DISTRIBUTION WIDTH (test code=RDW) 18.9 % 11.6-16.2 RED CELL DISTRIBUTION WIDTH SD (test code=RDW-SD) 43.0 fL 37.0-51.0 PLATELET COUNT (test code=PLT) 360 K/mm3 150-450 MEAN PLATELET VOLUME (test code=MPV) 10.3 fL 6.7-11.0 NEUTROPHIL % (test code=NT%) 61.1 % 39.0-69.0 IMMATURE GRANULOCYTE % (test code=IG%) 0.5 % 0.0-5.0 LYMPHOCYTE % (test code=LY%) 24.2 % 25.0-55.0 MONOCYTE % (test code=MO%) 11.8 % 0.0-10.0 EOSINOPHIL % (test code=EO%) 1.3 % 0.0-5.0 BASOPHIL % (test code=BA%) 1.1 % 0.0-1.0 NUCLEATED RBC % (test code=NRBC%) 0.0 % 0-0 NEUTROPHIL # (test code=NT#) 5.78 K/mm3 1.8-7.7 IMMATURE GRANULOCYTE # (test code=IG#) 0.05 x10 3/uL 0-0.03 LYMPHOCYTE # (test code=LY#) 2.29 K/mm3 1.0-5.0 MONOCYTE # (test code=MO#) 1.12 K/mm3 0-0.8 EOSINOPHIL # (test code=EO#) 0.12 K/mm3 0.0-0.5 BASOPHIL # (test code=BA#) 0.10 K/mm3 0.0-0.2 NUCLEATED RBC # (test code=NRBC#) 0.00 K/mm3 0.0-0.1 MANUAL DIFF REQUIRED (test code=MDIFF) NO, ONLY SCAN NEEDED DIFFERENTIAL [id number] 06:56:00* Test Item Value Reference Range Comments STAIN ACCEPTABILITY (test code=STN ACCEPTABLE) CABOT RINGS (test code=CAB) MORPHOLOGY COMMENT (test code=MOC) PLATELET ESTIMATE (test code=PLTEST) PLATELET MORPHOLOGY (test code=PLTMORPH) CBC W/AUTO [id number] 06:56:00* Test Item Value Reference Range Comments WHITE BLOOD CELL (test code=WBC) 9.5 K/mm3 4.5-12.5 RED BLOOD CELL (test code=RBC) 4.11 mill/mm3 3.7-5.2 HEMOGLOBIN (test code=HGB) 7.6 gram/dL 11.5-15.5 HEMATOCRIT (test code=HCT) 26.4 % 36.0-46.0 MEAN CELL VOLUME (test code=MCV) 64.2 fL 80-98 MEAN CELL HGB (test code=MCH) 18.5 picogram 27.0-33.0 MEAN CELL HGB CONCETRATION (test code=MCHC) 28.8 gram/dL 33.0-36.0 RED CELL DISTRIBUTION WIDTH (test code=RDW) 18.9 % 11.6-16.2 RED CELL DISTRIBUTION WIDTH SD (test code=RDW-SD) 43.0 fL 37.0-51.0 PLATELET COUNT (test code=PLT) 360 K/mm3 150-450 MEAN PLATELET VOLUME (test code=MPV) 10.3 fL 6.7-11.0 NEUTROPHIL % (test code=NT%) 61.1 % 39.0-69.0 IMMATURE GRANULOCYTE % (test code=IG%) 0.5 % 0.0-5.0 LYMPHOCYTE % (test code=LY%) 24.2 % 25.0-55.0 MONOCYTE % (test code=MO%) 11.8 % 0.0-10.0 EOSINOPHIL % (test code=EO%) 1.3 % 0.0-5.0 BASOPHIL % (test code=BA%) 1.1 % 0.0-1.0 NUCLEATED RBC % (test code=NRBC%) 0.0 % 0-0 NEUTROPHIL # (test code=NT#) 5.78 K/mm3 1.8-7.7 IMMATURE GRANULOCYTE # (test code=IG#) 0.05 x10 3/uL 0-0.03 LYMPHOCYTE # (test code=LY#) 2.29 K/mm3 1.0-5.0 MONOCYTE # (test code=MO#) 1.12 K/mm3 0-0.8 EOSINOPHIL # (test code=EO#) 0.12 K/mm3 0.0-0.5 BASOPHIL # (test code=BA#) 0.10 K/mm3 0.0-0.2 NUCLEATED RBC # (test code=NRBC#) 0.00 K/mm3 0.0-0.1 MANUAL DIFF REQUIRED (test code=MDIFF) NO, ONLY SCAN NEEDED DIFFERENTIAL [id number] 06:56:00* Test Item Value Reference Range Comments STAIN ACCEPTABILITY (test code=STN ACCEPTABLE) CABOT RINGS (test code=CAB) MORPHOLOGY COMMENT (test code=MOC) PLATELET ESTIMATE (test code=PLTEST) PLATELET MORPHOLOGY (test code=PLTMORPH) CBC W/AUTO [id number] 06:56:00* Test Item Value Reference Range Comments WHITE BLOOD CELL (test code=WBC) 9.5 K/mm3 4.5-12.5 RED BLOOD CELL (test code=RBC) 4.11 mill/mm3 3.7-5.2 HEMOGLOBIN (test code=HGB) 7.6 gram/dL 11.5-15.5 HEMATOCRIT (test code=HCT) 26.4 % 36.0-46.0 MEAN CELL VOLUME (test code=MCV) 64.2 fL 80-98 MEAN CELL HGB (test code=MCH) 18.5 picogram 27.0-33.0 MEAN CELL HGB CONCETRATION (test code=MCHC) 28.8 gram/dL 33.0-36.0 RED CELL DISTRIBUTION WIDTH (test code=RDW) 18.9 % 11.6-16.2 RED CELL DISTRIBUTION WIDTH SD (test code=RDW-SD) 43.0 fL 37.0-51.0 PLATELET COUNT (test code=PLT) 360 K/mm3 150-450 MEAN PLATELET VOLUME (test code=MPV) 10.3 fL 6.7-11.0 NEUTROPHIL % (test code=NT%) 61.1 % 39.0-69.0 IMMATURE GRANULOCYTE % (test code=IG%) 0.5 % 0.0-5.0 LYMPHOCYTE % (test code=LY%) 24.2 % 25.0-55.0 MONOCYTE % (test code=MO%) 11.8 % 0.0-10.0 EOSINOPHIL % (test code=EO%) 1.3 % 0.0-5.0 BASOPHIL % (test code=BA%) 1.1 % 0.0-1.0 NUCLEATED RBC % (test code=NRBC%) 0.0 % 0-0 NEUTROPHIL # (test code=NT#) 5.78 K/mm3 1.8-7.7 IMMATURE GRANULOCYTE # (test code=IG#) 0.05 x10 3/uL 0-0.03 LYMPHOCYTE # (test code=LY#) 2.29 K/mm3 1.0-5.0 MONOCYTE # (test code=MO#) 1.12 K/mm3 0-0.8 EOSINOPHIL # (test code=EO#) 0.12 K/mm3 0.0-0.5 BASOPHIL # (test code=BA#) 0.10 K/mm3 0.0-0.2 NUCLEATED RBC # (test code=NRBC#) 0.00 K/mm3 0.0-0.1 MANUAL DIFF REQUIRED (test code=MDIFF) NO, ONLY SCAN NEEDED DIFFERENTIAL [id number] 06:56:00* Test Item Value Reference Range Comments STAIN ACCEPTABILITY (test code=STN ACCEPTABLE) MORPHOLOGY COMMENT (test code=MOC) PLATELET ESTIMATE (test code=PLTEST) PLATELET MORPHOLOGY (test code=PLTMORPH) CBC W/AUTO [id number] 06:56:00* Test Item Value Reference Range Comments WHITE BLOOD CELL (test code=WBC) 9.5 K/mm3 4.5-12.5 RED BLOOD CELL (test code=RBC) 4.11 mill/mm3 3.7-5.2 HEMOGLOBIN (test code=HGB) 7.6 gram/dL 11.5-15.5 HEMATOCRIT (test code=HCT) 26.4 % 36.0-46.0 MEAN CELL VOLUME (test code=MCV) 64.2 fL 80-98 MEAN CELL HGB (test code=MCH) 18.5 picogram 27.0-33.0 MEAN CELL HGB CONCETRATION (test code=MCHC) 28.8 gram/dL 33.0-36.0 RED CELL DISTRIBUTION WIDTH (test code=RDW) 18.9 % 11.6-16.2 RED CELL DISTRIBUTION WIDTH SD (test code=RDW-SD) 43.0 fL 37.0-51.0 PLATELET COUNT (test code=PLT) 360 K/mm3 150-450 MEAN PLATELET VOLUME (test code=MPV) 10.3 fL 6.7-11.0 NEUTROPHIL % (test code=NT%) 61.1 % 39.0-69.0 IMMATURE GRANULOCYTE % (test code=IG%) 0.5 % 0.0-5.0 LYMPHOCYTE % (test code=LY%) 24.2 % 25.0-55.0 MONOCYTE % (test code=MO%) 11.8 % 0.0-10.0 EOSINOPHIL % (test code=EO%) 1.3 % 0.0-5.0 BASOPHIL % (test code=BA%) 1.1 % 0.0-1.0 NUCLEATED RBC % (test code=NRBC%) 0.0 % 0-0 NEUTROPHIL # (test code=NT#) 5.78 K/mm3 1.8-7.7 IMMATURE GRANULOCYTE # (test code=IG#) 0.05 x10 3/uL 0-0.03 LYMPHOCYTE # (test code=LY#) 2.29 K/mm3 1.0-5.0 MONOCYTE # (test code=MO#) 1.12 K/mm3 0-0.8 EOSINOPHIL # (test code=EO#) 0.12 K/mm3 0.0-0.5 BASOPHIL # (test code=BA#) 0.10 K/mm3 0.0-0.2 NUCLEATED RBC # (test code=NRBC#) 0.00 K/mm3 0.0-0.1 MANUAL DIFF REQUIRED (test code=MDIFF) NO, ONLY SCAN NEEDED DIFFERENTIAL [id number] 06:56:00* Test Item Value Reference Range Comments STAIN ACCEPTABILITY (test code=STN ACCEPTABLE) CABOT RINGS (test code=CAB) MORPHOLOGY COMMENT (test code=MOC) PLATELET ESTIMATE (test code=PLTEST) PLATELET MORPHOLOGY (test code=PLTMORPH) [id number] 03:27:00* Test Item Value Reference Range Comments CALCIUM (test code=CA) 8.0 mg/dL 8.5-10.1 [id number] 03:27:00* Test Item Value Reference Range Comments PHOSPHORUS (test code=PHOS) 2.8 mg/dL 2.5-4.9 THYROID STIMULATING [id number] 03:27:00* Test Item Value Reference Range Comments THYROID STIMULATING HORMONE (test code=TSH) 1.010 uIU/mL 0.36-3.74 TSH REFERENCE RANGES: EUTHYROID: 0.35 - 4.3 mIU/mL HYPO : > 5.5 mIU/mL HYPER : < 0.35 mIU/mL [id number] 03:20:00* Test Item Value Reference Range Comments CALCIUM (test code=CA) 8.0 mg/dL 8.5-10.1 [id number] 03:20:00* Test Item Value Reference Range Comments PHOSPHORUS (test code=PHOS) mg/dL 2.5-4.9 THYROID STIMULATING [id number] 03:20:00* Test Item Value Reference Range Comments THYROID STIMULATING HORMONE (test code=TSH) uIU/mL 0.36-3.74 - CT ABD PELVIS [id number] 00:16:00 Name: MELANY ARORA [facility] : 1985 Age/S: 34 / F [address] [facility] Unit #: [id number] Loc: [place] [address] Phys: Richar Mcbride MD Acct: [id number] Dis Date: Status: ADM IN PHONE #: [phone] Exam Date: 05/12/2019 2340 FAX #: [phone] Reason: sepsis EXAMS: CPT CODE: [id number] CT ABD PELVIS W/CONT 87157 EXAM: - CT ABD PELVIS W/CONT HISTORY: Sepsis. TECHNIQUE: Axial tomograms through the abdomen and pelvis were obtained after intravenous contrast. Coronal and sagittal reformatted images are provided. This exam was performed according to our departmental dose-optimization program, which includes automated exposure control, adjustment of the mA and/or kV according to patient size and/or use of iterative reconstruction technique. COMPARISON: None available time of interpretation. FINDINGS: The visualized lung bases are clear. The liver, spleen, pancreas, adrenal glands and right kidney demonstrate no significant abnormalities. There is minimal nonspecific stranding of fat around the upper left kidney. There is a small 6 mm cortical cyst in upper lateral left kidney. There is no renal or ureteral calculi. No hydronephrosis. The appendix has a normal appearance. The bowel is unremarkable. There is no adenopathy or free fluid. There is no acute osseous abnormality. IMPRESSION: There is minimal nonspecific left perinephric stranding. This could reflect mild inflammation or infection as well. No evidence of renal or ureteral calculi. No hydronephrosis. There is a tiny cortical cyst in upper left kidney. at 0016 Reported and signed by: Jericho Ames MD PAGE 1 Signed Report (CONTINUED) Name: MELANY ARORA [facility] : 1985 Age/S: 34 / F [address] [facility] Unit #: [id number] Loc: [place] [address] Phys: Richar Nuñez MD Acct: [id number] Dis Date: Status: ADM IN PHON E #: [phone] Exam Date: 05/12/2019 2340 FAX #: [phone] Reason: sepsis EXAMS : CPT CODE: [id number] CT ABD PELVIS W/CONT 38394 <Continued> CC: Richar Mcbride MD Technologist:BEAR HORVATH CT CTDI: DLP: Trnscb Date/Time: 05/13/2019 (001) [email or web address] Orig Print D/T: S: 05/13/2019 (0019) PAGE 2 Signed Report URINALYSIS [id number] 20:22:00* Test Item Value Reference Range Comments UA COLOR (test code=COLU) YELLOW YELLOW UA APPEARANCE (test code=APPU) Cloudy CLEAR UA GLUCOSE DIPSTICK (test code=DGLUU) NEGATIVE mg/dL NEGATIVE UA BILIRUBIN DIPSTICK (test code=BILU) NEGATIVE mg/dL NEGATIVE UA KETONE DIPSTICK (test code=KETU) NEGATIVE mg/dL NEGATIVE UA SPECIFIC GRAVITY (test code=SGU) 1.021 1.001-1.035 UA BLOOD DIPSTICK (test code=GERTRUDIS) 0.1 mg/dL (1+) mg/dL NEGATIVE UA PH DIPSTICK (test code=TINY) 6.0 5.0-8.0 UA PROTEIN DIPSTICK (test code=PROU) 100 (2+) mg/dL NEGATIVE UA UROBILINIOGEN DIPSTICK (test code=URO) Normal mg/dL NEGATIVE UA NITRITE DIPSTICK (test code=ROBERTO) NEGATIVE NEGATIVE UA LEUKOCYTE ESTERASE W REFLEX (test code=LEUUR) 500 Bibiana/uL (3+) Bibiana/uL NEGATIVE UA WBC (test code=WBCU) >200 per HPF 0-5 UA RBC (test code=RBCU) 3-5 #/HPF 0-5 UA EPITHELIAL CELLS (test code=EPIU) FEW per HPF FEW UA BACTERIA (test code=BACU) MANY #/HPF NONE UA MUCUS (test code=MUCU) FEW #/LPF FEW Urine Source? Clean CatchHEPATIC FUNCTION [id number] 19:31:00* Test Item Value Reference Range Comments TOTAL PROTEIN (test code=PROT) 9.0 gram/dL 6.4-8.2 ALBUMIN (test code=ALB) 3.8 g/dL 3.4-5.0 GLOBULIN (test code=GLOB) 5.2 gram/dL 2.7-4.2 ALBUMIN/GLOBULIN RATIO (test code=A/G) 0.7 0.75-1.50 BILIRUBIN TOTAL (test code=BILT) 1.40 mg/dL 0.0-1.0 BILIRUBIN DIRECT (test code=BILD) 0.28 mg/dL 0.0-0.20 SGOT/AST (test code=AST) 13 IUnit/L 15-37 SGPT/ALT (test code=ALT) 20 IUnit/L 12-78 ALKALINE PHOSPHATASE TOTAL (test code=ALKP) 106 IUnit/L 45-117 Note change in reference range due to change in reagent. LACTIC [id number] 19:18:00* Test Item Value Reference Range Comments LACTIC ACID (test code=LACT) 1.3 mmol/L 0.4-1.9 BASIC METABOLIC [id number] 19:17:00* Test Item Value Reference Range Comments SODIUM (test code=NA) 137 mmol/L 136-145 POTASSIUM (test code=K) 3.5 mmol/L 3.5-5.1 CHLORIDE (test code=CL) 103.0 mmol/L 98-107 CARBON DIOXIDE (test code=CO2) mmol/L 21-32 ANION GAP (test code=GAP) 10-20 GLUCOSE (test code=GLU) mg/dL 74-106 BLOOD UREA NITROGEN (test code=BUN) mg/dL 7-18 GLOMERULAR FILTRATION RATE (test code=GFR) mL/min >=60 CREATININE (test code=CREAT) mg/dL 0.55-1.02 BUN/CREATININE RATIO (test code=BUN/CREA) 10-20 CALCIUM (test code=CA) 9.1 mg/dL 8.5-10.1 HCG SERUM [id number] 19:17:00* Test Item Value Reference Range Comments HCG SERUM QUAL (test code=HCGQL) NEGATIVE NEGATIVE This HCGQL test is NOT applicable for MALE patients.Check with nurse about probable order error.If Tumor Marker Test needed, nurse should order test "HCGTU"(Test #550.70740) [id number] 19:17:00* Test Item Value Reference Range Comments TROPONIN-I (test code=TROPI) ng/mL 0-0.045 BASIC METABOLIC [id number] 19:17:00* Test Item Value Reference Range Comments SODIUM (test code=NA) 137 mmol/L 136-145 POTASSIUM (test code=K) 3.5 mmol/L 3.5-5.1 CHLORIDE (test code=CL) 103.0 mmol/L 98-107 CARBON DIOXIDE (test code=CO2) 26.0 mmol/L 21-32 ANION GAP (test code=GAP) 11.5 10-20 GLUCOSE (test code=GLU) 105 mg/dL 74-106 BLOOD UREA NITROGEN (test code=BUN) 12 mg/dL 7-18 GLOMERULAR FILTRATION RATE (test code=GFR) > 60 mL/min >=60 Estimated GFR by using Modified MDRD formula.Chronic kidney disease is defined as either kidney damageor GFR <60 mL/min/1.73 m2 for >3 months. CREATININE (test code=CREAT) 0.90 mg/dL 0.55-1.02 Note change in reference range due to change in reagent. BUN/CREATININE RATIO (test code=BUN/CREA) 12.7 10-20 CALCIUM (test code=CA) 9.1 mg/dL 8.5-10.1 HCG SERUM [id number] 19:17:00* Test Item Value Reference Range Comments HCG SERUM QUAL (test code=HCGQL) NEGATIVE NEGATIVE This HCGQL test is NOT applicable for MALE patients.Check with nurse about probable order error.If Tumor Marker Test needed, nurse should order test "HCGTU"(Test #550.18990) [id number] 19:17:00* Test Item Value Reference Range Comments TROPONIN-I (test code=TROPI) <0.015 ng/mL 0-0.045 BASIC METABOLIC [id number] 19:09:00* Test Item Value Reference Range Comments SODIUM (test code=NA) 137 mmol/L 136-145 POTASSIUM (test code=K) 3.5 mmol/L 3.5-5.1 CHLORIDE (test code=CL) 103.0 mmol/L 98-107 CARBON DIOXIDE (test code=CO2) mmol/L 21-32 ANION GAP (test code=GAP) 10-20 GLUCOSE (test code=GLU) mg/dL 74-106 BLOOD UREA NITROGEN (test code=BUN) mg/dL 7-18 GLOMERULAR FILTRATION RATE (test code=GFR) mL/min >=60 CREATININE (test code=CREAT) mg/dL 0.55-1.02 BUN/CREATININE RATIO (test code=BUN/CREA) 10-20 CALCIUM (test code=CA) 9.1 mg/dL 8.5-10.1 HCG SERUM [id number] 19:09:00* Test Item Value Reference Range Comments HCG SERUM QUAL (test code=HCGQL) NEGATIVE [id number] 19:09:00* Test Item Value Reference Range Comments TROPONIN-I (test code=TROPI) ng/mL 0-0.045 - XR CHEST 1 [id number] 19:08:00 FAX: Francis Montoya DO [place]: B St: REG Name: MELANY MCMANUS [facility] : [birth year] Age/S: 34/F [address] [facility] Unit #: [id number] Loc: [place] [address] Phys: Francis Montoya DO Acct: [id number] Dis Date: Status: REG ER PHONE #: [phone] Exam Date: 05/12/20191899 FAX #: [phone] Reason: CHEST PAIN EXAMS: CPT CODE: [id number] XR CHEST 1 V 59057 HISTORY: Chest pain. COMPARISON: December 14, 2016. No acute infiltrates, effusion or conge stion is noted. The cardiac and mediastinal silhouette are within normal limits. IMPRESSION: No acute infiltra mariya, effusion or congestion. at 1908 Reported and signed by: Darius Pavon M.D. CC: Francis Montoya DO Technologist: JAYCEE YOON; Adithya Reyes, (R Trnscrd Date/Time/By: 05/12/2019 (1907) : By: [email or web address] Orig Print D/T: S: 05/12/2019 (1910) PAGE 1 Signed Report CBC W/O [id number] 19:05:00 * Test Item Value Reference Range Comments WHITE BLOOD CELL (test code=WBC) 14.6 K/mm3 4.5-12.5 RED BLOOD CELL (test code=RBC) 5.06 mill/mm3 3.7-5.2 HEMOGLOBIN (test code=HGB) 9.3 gram/dL 11.5-15.5 HEMATOCRIT (test code=HCT) 32.2 % 36.0-46.0 MEAN CELL VOLUME (test code=MCV) 63.6 fL 80-98 MEAN CELL HGB (test code=MCH) 18.4 picogram 27.0-33.0 MEAN CELL HGB CONCETRATION (test code=MCHC) 28.9 gram/dL 33.0-36.0 RED CELL DISTRIBUTION WIDTH (test code=RDW) 19.0 % 11.6-16.2 PLATELET COUNT (test code=PLT) 489 K/mm3 150-450 MEAN PLATELET VOLUME (test code=MPV) 10.0 fL 6.7-11.0 - XR FOOT 3 + V [id number] 23:23:00 FAX: Vernon Ayala NP [phone] [place]: St: REG Name: MELANY MCMANUS [facility] : [birth year] Age/S: 33/F [address] [place] [address] Unit #: [id number] Loc: [place] [address] Phys: Vernon Ayala NP Acct: [id number] Dis Date: Status: REG ER PHONE #: [phone] Exam Date: 02/24/2019 2316 FAX #: [phone] Reason: Foot pain, R 3rd digit blunt trauma EXAMS: CPT CODE: [id number] XR FOOT 3 + V RT [address]606 Study: - XR FOOT 3 + V RT 02/24/2019 10:59 PM Patient Name: MELANY ARORA MR: [id number] : 1985; Age: 33 years y/o Female Ordering Physician: Vernon Ayala NP Clinical Indication: Foot pain, R 3rd digit blunt trauma Comparison: None RIGHT FOOT, 3 views: No acute fracture, dislocation, or suspicious focal osseous lesion. Mild soft tissue thickening in the forefoot. SL: Irene GRAHAM at 2323 Reported and signed by: Oliver Zuleta M.D. CC: Vernon Yen NP Technologist: RT Del (R) Trnscrd Date/Time/By: 02/24/2019 (8813) : [place] y: [email or web address] Orig Print D/T: S: 02/24/2019 (3063) PAGE 1 Signed Report
[2019-09-16 19:07] LABS: BILIRUBIN,URINE NEGATIVE (NEGATIVE); CLARITY,URINE SL CLOUDY (CLEAR); COLOR,URINE YELLOW (YELLOW); KETONES,URINE TRACE (NEGATIVE); LEUKOCYTE ESTERASE ,URINE NEGATIVE (NEGATIVE); NITRITE,URINE NEGATIVE (NEGATIVE); PROTEIN,URINE DIPSTICK NEGATIVE (NEGATIVE); URINE UROBILINOGEN 0.2 mg/dL (0.2 - 1)
[2019-09-16 19:16] LABS: BACTERIA,URINE MODERATE /HPF; EPITHELIAL CELLS,URINE MODERATE /LPF
[2019-09-16] MEDS ORDERED: KETOROLAC TROMETHAMINE 60 MG/2 ML VIAL IM ONE (19:30)
--- NOTE | 2019-09-16 21:22 | Diagnostic Imaging Report ---
EXAM: CT Abdomen and Pelvis WITHOUT contrast INDICATION: Flank pain COMPARISON: None. TECHNIQUE: Abdomen and pelvis were scanned utilizing a multidetector helical scanner from the lung base to the pubic symphysis without administration of IV contrast. Absence of intravenous contrast decreases sensitivity for detection of focal lesions and vascular pathology. Coronal and sagittal reformations were obtained. Routine protocol was performed. IV CONTRAST: None ORAL CONTRAST: Water COMPLICATIONS: None RADIATION DOSE: Total DLP: 324.93 mGy-cm Estimated effective dose: (DLP x 0.015 x size factor) mSv CTDIvol has been reviewed. It is below the limits set by the Radiation Protocol Committee (RPC). FINDINGS: LINES and TUBES: None. LOWER THORAX: Unremarkable HEPATOBILIARY: No biliary ductal dilation. GALLBLADDER: No radio-opaque stones or sludge. No wall thickening. SPLEEN: No splenomegaly. PANCREAS: No focal masses or ductal dilatation. ADRENALS: No adrenal nodules KIDNEYS/URETERS: No hydronephrosis. No cystic or solid mass lesions. No stones. GI TRACT: No abnormal distention, wall thickening, or evidence of bowel obstruction. Appendix is normal. PELVIC ORGANS/BLADDER: Unremarkable. LYMPH NODES: No lymphadenopathy. VESSELS: Unremarkable. PERITONEUM / RETROPERITONEUM: No free air or fluid. BONES: Unremarkable. SOFT TISSUES: Unremarkable. IMPRESSION: No nephroureterolithiasis or hydroureteronephrosis. Signed by: Nasir Rowland MD on 09/16/2019 9:19 PM
[2019-09-17 04:23] VITALS: BP 137/92
== END 2019-09-16 22:30 | disposition home or self-care (01) ==
LOC: ER 17:26
DX: S39.012A Strain of muscle, fascia and tendon of lower back, initial encounter (principal); J45.909 Unspecified asthma, uncomplicated
CPT/HCPCS: 74176; 81001; 81025; 87086; 99283; J1885